=== PATIENT | male | born 2000 | race Caucasian/White ===

== ENCOUNTER 2023-07-07 17:47 | Inpatient (IN) | payer OTHER, SELFPAY ==
[2023-07-07 18:00] VITALS: BP 117/75; PULSE 109; TEMP 37.1; O2SAT 97; BMI 23.3
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
--- NOTE | 2023-07-07 18:16 | ECG_ITS ---
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 Measurements Intervals [place] Rate: 92 P: 69 MO: 183 QRS: 89 QRSD: 104 T: 46 QT: 328 QTc: 407 Interpretive Statements SINUS RHYTHM WITH SINUS ARRHYTHMIA No previous ECG available for comparison Electronically Signed On 07-08-2023 10:50:53 POLY AREA SUPERVISOR by Gema Pierce M.D. [id number]
[2023-07-07 18:39] LABS: Basophils % 0.4 %; Eosinophils # 0.1 10^3/uL (0.0-0.8); Eosinophils % 1.4 %; Hematocrit 47.9 % (37-53); Lymphocytes # 1.3 10^3/uL (0.8-4.8); Lymphocytes % 24.7 %; Mean Corpuscular HGB Conc 33.4 g/dL (30-55); Mean Corpuscular Hemoglobin 28.7 pg (27-33); Mean Corpuscular Volume 85.8 fl (82-101); Mean Platelet Volume 9.2 fL (7.4-10.4); Monocytes # 0.5 10^3/uL (0.2-0.9); Monocytes % 9.1 %; Neutrophils # 3.33 10^3/uL (1.8-7.7); Neutrophils % 64.2 %; Nucleated Red Blood Cells % 0 %; Platelet Count 310 10^3/cmm (157-399); Red Blood Count 5.58 10^6/uL (3.85-5.65); Red Cell Distribution Width 11.9 % (12.1-15.1); White Blood Count 5.18 10^3/uL (3.29-11.43)
[2023-07-07 19:05] LABS: Alanine Aminotransferase 23 U/L (0-41); Albumin Level 4.6 g/dL (3.5-5.2); Alkaline Phosphatase 86 U/L (40-130); Aspartate Amino Transferase 18 U/L (0-40); Blood Urea Nitrogen 14 mg/dL (6-20); Calcium 8.9 mg/dL (8.5-10.5); Carbon Dioxide 27 mmol/L (22-29); Chloride 105 mmol/L (98-107); Creatinine Clr Calc Pharmacy 167.8448; Globulin 2.6 g/dL (1.3-4.6); Glomerular Filtration Rate 142.4 mL/min (90-130); Glucose 99 mg/dL (65-115); Osmolality Calculated 291 mOsm/kg (285-295); Sodium 140 mmol/L (136-145); Thyroid Stimulating Hormone 2.27 uIU/mL (0.27-4.20); Total Bilirubin 0.3 mg/dL (0.15-1.2); Total Protein 7.2 g/dL (6.6-8.7)
[2023-07-07 19:13] LABS: Acetaminophen < 5.0 ug/mL (10-30); Alcohol Level < 10 mg/dL (0-10); Salicylate < 0.3 mg/dL (3-10)
[2023-07-07 20:49] LABS: Add Urine Culture? No; Add Urine Microscopic? YES; Bacteria Urine TRACE /hpf; Bilirubin Urine Neg (Negative); Blood Urine Neg (Negative); Glucose Urine UA Norm (Normal); Ketones Urine Negative (Negative); Leukocyte Esterase Urine Negative (Negative); Mucus Urine 2+ /hpf; Nitrate Urine Negative (Negative); Protein Urine Trace (Negative); Urine Appearance Clear (CLEAR); Urine Color Yellow (Yellow); Urobilinogen Urine 1 mg/dL (Negative); pH Urine 6 (5-7)
[2023-07-07 20:51] LABS: Amphetamines Screen Urine Negative (Negative); Barbiturates Screen Urine Negative (Negative); Benzodiazepines Screen Urine Negative (Negative); Cocaine Screen Urine Negative (Negative); Opiate Screen Urine Negative (Negative); PCP Screen Urine Negative (Negative); THC Screen Urine Negative (Negative)
[2023-07-07 21:22] VITALS: BP 103/72; PULSE 94; RESP 18; TEMP 36.9; O2SAT 98
--- NOTE | 2023-07-07 21:43 | PC.NURSE ---
96 Hour Involuntary Hold Patient Rights have been read to the patient and a copy of the same has been given to him. Elevator Constructor Yue Marquez was present at bedside at the time of presentation of rights.
[2023-07-07 22:49] VITALS: BP 122/76; PULSE 93; O2SAT 99
[2023-07-08 06:00] VITALS: BP 108/74; PULSE 88; RESP 16; TEMP 36.5; O2SAT 99
--- NOTE | 2023-07-08 07:59 | PC.NURSE ---
Morning assessment Patient denies anxiety, depression, SI, HI, and AVH. 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 He works 5 days per week, 8 hour shifts.
[2023-07-08 14:00] VITALS: RESP 16
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
[2023-07-08 21:16] VITALS: BP 127/81; PULSE 96; RESP 18; TEMP 36.6; O2SAT 99
[2023-07-09 06:00] VITALS: BP 114/77; PULSE 95; RESP 16; TEMP 36.8; O2SAT 98
--- NOTE | 2023-07-09 06:37 | PC.NURSE ---
NO PRN MEDICATIONS WERE RECEIVED THIS SHIFT. PT SLEPT APPROXIMATELY 9-10 HOURS AND IS CURRENTLY RESTING WITH NO DISTRESS NOTED AT THIS TIME.
[2023-07-09 14:00] VITALS: BP 114/71; PULSE 96; RESP 16; TEMP 36.9; O2SAT 99
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
[2023-07-09 20:42] VITALS: BP 128/84; PULSE 85; RESP 18; TEMP 36.8; O2SAT 99
[2023-07-10 06:00] VITALS: BP 127/76; PULSE 106; RESP 16; TEMP 36.9; O2SAT 99
[2023-07-10 14:00] VITALS: BP 110/68; PULSE 94; RESP 17; TEMP 36.9; O2SAT 97
--- NOTE | 2023-07-10 16:10 | PC.NURSE ---
Patient had a visit with his mom in which she became very agitated about how his bill would be paid. Nursing staff told her we did not take part in the billing process, but that she could contact billing to find out this information. She then asked if a person were to be here and did not have insurance how the bill would be paid and when answered with it would be billed to the patient she replied, so, basically you'd just ruin his life? This RN then told her that her son had insurance so it would be billed to insurance. She continued to seem irritated and walked off from the nurses' station.
--- NOTE | 2023-07-10 17:52 | W.PM.NPUPNS ---
Subjective NPU Subjective: Patient presented today reporting that he was feeling okay. Met with he and his mother and they expressed concerns about making sure the court had been notified that he would be here and not in court on Wednesday. We discussed that we had taking care of that. Additionally mother had concerns about him not being discharged, but when we discussed needing more information to understand his safety risks she reported that we would need to talk to the vacuum metalizing supervisor because of concerns that talking about his history could put him in legal jeopardy of some sort. We assured her that we were just trying to get an understanding of developmental considerations but she continued to refuse. He denied any need for any medications. Mental Status Exam MSE Comments: This is a a slender white male in hospital scrubs with adequate hygiene and limited eye contact. No abnormal involuntary motor movements except for mild psychomotor retardation. Mostly cooperative with exam in mild distress. Her speech was decreased in rate, normal in volume with a limited prosody. Mood described as okay ; affect was restricted in range. Thought process: linear and logical. Thought content: Patient denies suicidal ideation, self-harm, paranoia, hallucinations, and nightmares. Reports occasional anxiety related to upcoming court date. He denies depression or homicidal ideation he did not appear to be responding to internal stimuli Attention and concentration appeared intact and memory seemed unreliable after reading the affidavit but possibly intentionally so, but none were formally tested. He is alert and oriented x 3. Insight, judgment and impulse control are all impaired Vitals/I&O/Wt Last Vital Signs Temp 98.4 F 07/10/23 14:00 Pulse 94 07/10/23 14:00 Resp 17 07/10/23 14:00 BP 110/68 07/10/23 14:00 Pulse Ox 97 07/10/23 14:00 O2 Del Method Room Air 07/10/23 06:00 Data NPU 07/07/23 18:31 07/07/23 18:31 A&P Assessment and plan (1) Suicidal ideation: (2) Homicidal ideation: (3) Paranoia: (4) Parent-child relational problem: Plan This is a 22-year-old white male who presents denying symptoms of depression, psychosis, PTSD, OCD, antisocial personality disorder, conduct disorder, or significant anxiety, but concerns for paranoia exist and his items discovered in his room are strong contrast with his reports. Concerns for cluster A versus C personality disorder or autism exist 1. Evaluate for need for any medication 2. Continue every 15 minute checks for safety. 3. Encourage individual, group and milieu therapy. 4. Evaluate for safety for 96-hour hold. 5. Mother refused to give collateral information/past history secondary to legal concerns. Involuntary Hold Information 96 Hour Hold: 96 Hour Involuntary Admission: Yes 96 Hour Hold Ending Date: 07/13/23 96 Hour Hold Ending Time: 21:30 Attestations NPU Medical Necessity Statement*: Inpatient hospitalization is medically necessary and the clinically appropriate intervention at this time. We will monitor/initiate medications and make changes as indicated. Likely length of stay 4 to 6 days. Coding Level of Care Code Acute Code for [facility] Fwd Diagnoses Suicidal ideation R45.851 Homicidal ideation R45.850 Paranoia F22 Parent-child relational problem Z62.820
[2023-07-10 20:09] VITALS: BP 119/79; PULSE 95; RESP 17; TEMP 36.6; O2SAT 98
--- NOTE | 2023-07-10 21:53 | PC.NURSE ---
PACING HALLWAY. PT IS NOTED TO HAVE FLAT AFFECT AND IS GUARDED WITH STAFF. PT IS EVASIVE WITH ANSWERING QUESTION. DENIES PAIN. DENIES SI/HI AND AVH AT THIS TIME. RATES ANXIETY AND DEPRESSION 0/10. SUPPORT WAS VOICED.
[2023-07-11 06:00] VITALS: BP 113/76; PULSE 96; RESP 16; O2SAT 99
--- NOTE | 2023-07-11 11:11 | P.NPUPN_ITS ---
Subjective NPU 2 Subjective: Patient presented today reporting that he is feeling fine. Staff reports of his dad coming to visit and reporting a previous diagnosis of autism that they had believed he grew out of. Still no clear indication of what the source of his anger may have been in the past. Parents both seem to be likely to embrace conspiracy theories and both are somewhat resistant to reporting things about him for fear that they will be used against him. Talk with Obed about the need for us to understand the circumstances of his behaviors to be able to possibly predict the risk of future behaviors. Mental Status Exam 2 MSE Comments: This is a a slender white male in hospital scrubs with adequate hygiene and limited eye contact. No abnormal involuntary motor movements except for mild psychomotor retardation. Mostly cooperative with exam in mild distress. Her speech was decreased in rate, normal in volume with a limited prosody. Mood described as okay ; affect was restricted in range. Thought process: linear and logical. Thought content: Patient denies suicidal ideation, self-harm, paranoia, hallucinations, and nightmares. Reports occasional anxiety related to upcoming court date. He denies depression or homicidal ideation he did not appear to be responding to internal stimuli Attention and concentration appeared intact and memory seemed unreliable after reading the affidavit but possibly intentionally so, but none were formally tested. He is alert and oriented x 3. Insight, judgment and impulse control are all impaired Vitals/I&O/Wt Last Vital Signs Temp 97.9 F 07/10/23 20:09 Pulse 96 07/11/23 06:00 Resp 16 07/11/23 06:00 BP 113/76 07/11/23 06:00 Pulse Ox 99 07/11/23 06:00 O2 Del Method Room Air 07/11/23 06:00 Weight last 48 hrs Weight 74.899 kg Data NPU 07/07/23 18:31 07/07/23 18:31 A&P Assessment and plan (1) Suicidal ideation: (2) Homicidal ideation: (3) Paranoia: (4) Parent-child relational problem: Plan This is a 22-year-old white male who presents denying symptoms of depression, psychosis, PTSD, OCD, antisocial personality disorder, conduct disorder, or significant anxiety, but concerns for paranoia exist and his items discovered in his room are strong contrast with his reports. Concerns for cluster A versus C personality disorder or autism exist 1. Evaluate for need for any medication 2. Continue every 15 minute checks for safety. 3. Encourage individual, group and milieu therapy. 4. Evaluate for safety for 96-hour hold. 5. Mother refused to give collateral information/past history secondary to legal concerns. Involuntary Hold Information 2 96 Hour Hold: 96 Hour Involuntary Admission: Yes 96 Hour Hold Ending Date: 07/13/23 96 Hour Hold Ending Time: 21:30 Attestations NPU 2 Medical Necessity Statement*: Inpatient hospitalization is medically necessary and the clinically appropriate intervention at this time. We will monitor/initiate medications and make changes as indicated. Likely length of stay 3-5 days. Coding Level of Care Code Acute Code for [facility] Fwd Diagnoses Suicidal ideation R45.851 Homicidal ideation R45.850 Paranoia F22 Parent-child relational problem Z62.820
[2023-07-11 14:00] VITALS: BP 107/68; PULSE 97; RESP 17; TEMP 36.8; O2SAT 97
[2023-07-11 20:43] VITALS: BP 134/72; PULSE 84; RESP 18; TEMP 36.8; O2SAT 97
--- NOTE | 2023-07-11 21:45 | PC.NURSE ---
PT CONTINUES TO BE EVASIVE WITH ASSESSMENT QUESTIONS. DENIES SI/HI AND AVH AT THIS TIME. RATES ANXIETY AND DEPRESSION 0/10. DENIES PAIN. PT BELIEVES HE SHOULD NOT BE HERE BUT WILL NOT GIVE ANY INSIGHT OR VERBALIZE WHY HE IS HERE. SUPPORT VOICED.
[2023-07-12 06:00] VITALS: BP 122/78; PULSE 66; RESP 16; TEMP 36.5; O2SAT 98
--- NOTE | 2023-07-12 12:56 | P.NPUPN_ITS ---
Subjective NPU 2 Subjective: Patient presented today reporting that he is doing okay in general. He reports wanting to go home but acknowledging that he does understand the safety considerations that we are exploring. We discussed filing for 21-day hold but still trying to decide what is appropriate moving forward. He continues to deny any need for medication. Mental Status Exam 2 MSE Comments: This is a a slender white male in hospital scrubs with adequate hygiene and limited eye contact. No abnormal involuntary motor movements except for mild psychomotor retardation. Mostly cooperative with exam in mild distress. Her speech was decreased in rate, normal in volume with a limited prosody. Mood described as okay ; affect was restricted in range. Thought process: linear and logical. Thought content: Patient denies suicidal ideation, self-harm, paranoia, hallucinations, and nightmares. Reports occasional anxiety related to upcoming court date. He denies depression or homicidal ideation he did not appear to be responding to internal stimuli Attention and concentration appeared intact and memory seemed unreliable after reading the affidavit but possibly intentionally so, but none were formally tested. He is alert and oriented x 3. Insight, judgment and impulse control are all impaired Vitals/I&O/Wt Last Vital Signs Temp 97.7 F 07/12/23 06:00 Pulse 66 07/12/23 06:00 Resp 16 07/12/23 06:00 BP 122/78 07/12/23 06:00 Pulse Ox 98 07/12/23 06:00 O2 Del Method Room Air 07/11/23 20:43 Weight last 48 hrs Weight 74.899 kg Data NPU 07/07/23 18:31 07/07/23 18:31 A&P Assessment and plan (1) Suicidal ideation: (2) Homicidal ideation: (3) Paranoia: (4) Parent-child relational problem: Plan This is a 22-year-old white male who presents denying symptoms of depression, psychosis, PTSD, OCD, antisocial personality disorder, conduct disorder, or significant anxiety, but concerns for paranoia exist and his items discovered in his room are strong contrast with his reports. Concerns for cluster A versus C personality disorder or autism exist 1. Evaluate for need for any medication 2. Continue every 15 minute checks for safety. 3. Encourage individual, group and milieu therapy. 4. Evaluate for safety for 96-hour hold. 5. Mother refused to give collateral information/past history secondary to legal concerns. Father reporting history of autistic disorder. 6. Filed 21-day hold paperwork today. Involuntary Hold Information 2 96 Hour Hold: 96 Hour Involuntary Admission: Yes 96 Hour Hold Ending Date: 07/13/23 96 Hour Hold Ending Time: 21:30 Attestations NPU 2 Medical Necessity Statement*: Inpatient hospitalization is medically necessary and the clinically appropriate intervention at this time. We will monitor/initiate medications and make changes as indicated. Likely length of stay 3-5 days. Possibly longer with 21-day hold. Coding Level of Care Code Acute Code for [facility] Fwd Diagnoses Suicidal ideation R45.851 Homicidal ideation R45.850 Paranoia F22 Parent-child relational problem Z62.820
[2023-07-12 14:00] VITALS: BP 108/69; PULSE 112; RESP 17; TEMP 36.6; O2SAT 97
[2023-07-12 20:06] VITALS: BP 112/74; PULSE 111; RESP 18; TEMP 37.1; O2SAT 98
[2023-07-13 06:00] VITALS: BP 117/78; PULSE 82; RESP 16; TEMP 36.6; O2SAT 98
--- NOTE | 2023-07-13 07:44 | PC.NURSE ---
During morning shift assessment, patient stated that he is doing good. Patient denies SI, HI, AVH, depression, and anxiety. When asked about his past, patient stated that he used to live in [place] or [place]. Patient states that he likes it here because he likes nature. Patient states that his mother is from [place], and his dad is from [place].
--- NOTE | 2023-07-13 07:48 | PC.NURSE ---
During morning shift assessment, patient stated that he is doing good. Patient denies SI, HI, AVH, depression, and anxiety. When asked about his past, patient stated that he used to live in [place] or [place]. Patient states that he likes it here because he likes nature. Patient states that his mother is from [place], and his dad is from [place].
--- NOTE | 2023-07-13 11:34 | P.NPUPN_ITS ---
Subjective NPU 2 Subjective: Patient presented today essentially unchanged and continuing to be limited in his either willingness to give some indication of the back story of the items in his room in the journal or his ability to recall that information. We discussed the impact of this in trying to identify what is driving his dangerous behaviors and that leading to the filing of a 21-day hold extension so that we can ensure that we have a better understanding of these recent events in the past events. Tried to discuss his history of autism diagnoses but he reports that we need to talk to his mother about his past medical history. Mental Status Exam 2 MSE Comments: This is a a slender white male in hospital scrubs with adequate hygiene and limited eye contact. No abnormal involuntary motor movements except for mild psychomotor retardation. Mostly cooperative with exam in mild distress. Her speech was decreased in rate, normal in volume with a limited prosody. Mood described as okay ; affect was restricted in range. Thought process: linear and logical. Thought content: Patient denies suicidal ideation, self-harm, paranoia, hallucinations, and nightmares. Reports occasional anxiety related to upcoming court date. He denies depression or homicidal ideation he did not appear to be responding to internal stimuli Attention and concentration appeared intact and memory seemed unreliable after reading the affidavit but possibly intentionally so, but none were formally tested. He is alert and oriented x 3. Insight, judgment and impulse control are all impaired Vitals/I&O/Wt Last Vital Signs Temp 97.9 F 07/13/23 06:00 Pulse 82 07/13/23 06:00 Resp 16 07/13/23 06:00 BP 117/78 07/13/23 06:00 Pulse Ox 98 07/13/23 06:00 O2 Del Method Room Air 07/11/23 20:43 Data NPU 07/07/23 18:31 07/07/23 18:31 A&P Assessment and plan (1) Suicidal ideation: (2) Homicidal ideation: (3) Paranoia: (4) Parent-child relational problem: Plan This is a 22-year-old white male who presents denying symptoms of depression, psychosis, PTSD, OCD, antisocial personality disorder, conduct disorder, or significant anxiety, but concerns for paranoia exist and his items discovered in his room are strong contrast with his reports. Concerns for cluster A versus C personality disorder or autism exist 1. Evaluate for need for any medication 2. Continue every 15 minute checks for safety. 3. Encourage individual, group and milieu therapy. 4. Evaluate for safety for 96-hour hold. 5. Mother refused to give collateral information/past history secondary to legal concerns. Father reporting history of autistic disorder. 6. Filed 21-day hold paperwork today. 7. We will meet with the hospital administration to make sure they are aware of this significant risk for any considerations they are thinking as we consider eventual discharge. Involuntary Hold Information 2 96 Hour Hold: 96 Hour Involuntary Admission: Yes 96 Hour Hold Ending Date: 07/13/23 96 Hour Hold Ending Time: 21:30 Attestations NPU 2 Medical Necessity Statement*: Inpatient hospitalization is medically necessary and the clinically appropriate intervention at this time. We will monitor/initiate medications and make changes as indicated. Likely length of stay 3-5 days. Possibly longer with 21-day hold. Coding Level of Care Code Acute Code for [facility] Fwd Diagnoses Suicidal ideation R45.851 Homicidal ideation R45.850 Paranoia F22 Parent-child relational problem Z62.820
[2023-07-13 14:00] VITALS: BP 102/68; PULSE 88; RESP 20; TEMP 36.7; O2SAT 98
[2023-07-13 20:44] VITALS: BP 104/71; PULSE 136; RESP 18; TEMP 36.7; O2SAT 95
[2023-07-14 06:00] VITALS: BP 108/76; PULSE 82; RESP 18; TEMP 36.8; O2SAT 98
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
[2023-07-14 12:57] VITALS: BP 118/75; PULSE 116; RESP 16; TEMP 36.8; O2SAT 98
--- NOTE | 2023-07-14 14:01 | PC.NURSE ---
Left unit to go to [address] at 1400
--- NOTE | 2023-07-14 15:32 | PC.NURSE ---
Patient arrived back to unit from court at 1530. Patient calm.
[2023-07-14 20:50] VITALS: BP 104/65; PULSE 84; RESP 18; TEMP 36.6; O2SAT 97
--- NOTE | 2023-07-14 21:14 | PC.NURSE ---
IN DAY ROOM WATCHING TV, PT CONTINUES TO BE EVASIVE WITH ASSESSMENT. DENIES SI/HI AND AVH AT THIS TIME. DENIES PAIN. RATES ANXIETY AND DEPRESSION 0/10. SUPPORT VOICED.
[2023-07-15 06:00] VITALS: BP 111/72; PULSE 105; RESP 16; TEMP 36.6; O2SAT 99
[2023-07-15 14:00] VITALS: BP 128/89; PULSE 100; RESP 17; TEMP 37.1; O2SAT 99
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
[2023-07-15 20:26] VITALS: BP 105/70; PULSE 97; RESP 16; TEMP 36.8; O2SAT 99
[2023-07-16 06:00] VITALS: BP 110/71; PULSE 93; RESP 16; TEMP 37; O2SAT 98
--- NOTE | 2023-07-16 08:02 | PC.NURSE ---
During morning shift assessment, patient reports that he is doing good. Patient denies SI, HI, AVH, depression, and anxiety.
[2023-07-16 14:00] VITALS: BP 112/72; PULSE 94; RESP 17; TEMP 37.1; O2SAT 99
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
[2023-07-16 20:42] VITALS: BP 105/69; PULSE 96; RESP 18; TEMP 36.8; O2SAT 98
--- NOTE | 2023-07-16 21:34 | PC.NURSE ---
IN DAY ROOM WATCHING TV NO DISTRESS NOTED. CONTINUES TO DENY PAIN, SI/HI AND AVH AT THIS TIME. PT DECLINES PRN MEDICATIONS AND IS NOTED TO SLEEP VERY WELL AT NIGHT WITH NO OBSERVATIONS OF ANXIETY. SUPPORT WAS VOICED
--- NOTE | 2023-07-17 05:12 | PC.NURSE ---
PT DID NOT REQUIRE OR REQUEST ANY PRN'S THIS SHIFT. PT WAS ABLE TO REST THROUGHOUT THE SHIFT. PT CONTINUES TO REST WITH EYES CLOSED WITH NO DISTRESS NOTED AT THIS TIME.
[2023-07-17 06:00] VITALS: BP 135/82; PULSE 80; RESP 16; O2SAT 99
[2023-07-17 14:00] VITALS: BP 118/73; PULSE 78; RESP 18; TEMP 36.8; O2SAT 99
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
[2023-07-17 20:23] VITALS: BP 107/68; PULSE 81; RESP 18; TEMP 36.7; O2SAT 96
[2023-07-18 06:00] VITALS: BP 102/66; PULSE 76; RESP 16; O2SAT 96
[2023-07-18 14:00] VITALS: BP 100/62; PULSE 100; RESP 20; TEMP 36.9; O2SAT 97
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
[2023-07-18 20:28] VITALS: BP 135/91; PULSE 99; RESP 18; TEMP 36.7; O2SAT 98
[2023-07-19 06:00] VITALS: BP 127/82; PULSE 72; RESP 16; TEMP 36.5; O2SAT 98
[2023-07-19 14:00] VITALS: BP 108/69; PULSE 99; RESP 18; TEMP 36.7; O2SAT 96
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
[2023-07-19 21:36] VITALS: BP 108/71; PULSE 72; RESP 18; TEMP 36.8; O2SAT 98
--- NOTE | 2023-07-19 21:46 | PC.NURSE ---
PT IN DAY ROOM SITTING DOWN AND WATHCING TV WITH NO DISTRESS NOTED. PT DENIES SI/HI AND AVH AT THIS. DENIES PAIN. RATES ANXIETY AND DEPRESSION 0/10. SUPPORT VOICED.
--- NOTE | 2023-07-20 05:10 | PC.NURSE ---
PT DECLINED THE NEED FOR PRN MEDICATIONS THIS SHIFT. PT HAS SLEPT APPROXIMATELY 9-10 HOURS THIS SHIFT. PT IS CURRENTLY RESTING WITH EYES CLOSED WITH NO DISTRESS NOTED AT THIS TIME.
[2023-07-20 06:00] VITALS: BP 115/78; PULSE 94; RESP 18; TEMP 36.4; O2SAT 96
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
[2023-07-20 15:04] VITALS: BP 115/78; PULSE 94; RESP 18; TEMP 36.4; O2SAT 96
== END 2023-07-20 15:22 | disposition home or self-care (01) | DRG 885 ==
LOC: ER 20:33 → NP 20:45
PROVIDERS: Internal Medicine; Admitting Provider Psychiatry & Neurology Psychiatry; Emergency Provider Emergency Medicine; Visit Provider Psychiatry & Neurology Psychiatry
DX: F22 Delusional disorders (principal); R45.851 Suicidal ideations; R45.850 Homicidal ideations; Z62.820 Parent-biological child conflict
CPT/HCPCS: 36415; 80053; 80306; 80307; 81001; 84443; 85025; 93005; 97150; 97165; 99285

== ENCOUNTER 2025-03-14 02:12 | Emergency (ER) | payer OTHER, SELFPAY ==
[2025-03-14 02:15] VITALS: BP 132/77; PULSE 80; RESP 17; TEMP 36.9; O2SAT 98; BMI 25.1
--- OUTSIDE RECORDS SUMMARY | 2025-03-14 02:34 | XMS_ITS | Data Portability ---
Author Organization BENJAMIN Gilliland [facility] Adelso Louie [facility] Address [address] [place] [id number] Assessment No assessment recorded. Plan of Treatment Reminders Order Date Submit Date Provider Last Modified By Organization Details Last Modified Time Details Appointments None recorded. Lab CMP, serum or plasma 2024 025 [facility], [address] [facility], [address], [place], [address], 5 13:42:41 lipid panel, blood 2024 025 [facility], [address] [facility] Rodriguestianna, [address], [place], [address], 5 13:42:44 CBC 2024 025 [facility], [address] [facility], [address], [place], [address], 5 11:52:50 alpha-gal ige, serum 2024 025 [facility], [address] [facility] [address], [place], [address], 5 07:21:27 TSH, serum or plasma [email or web address] [place] [address] Lab, [address] [facility], [address], [place], [address], 15:30:39 Referral None recorded. Procedures None recorded. Surgeries None recorded. Imaging None recorded. Medication Orders amoxicillin 875 mg tablet 2023 024 [id number], [address], [place], [place], [id number], 11:36:14 fluticasone propionate 50 mcg/actuati on nasal spray,suspe nsion 2023 024 [place] [id number] [address] [facility] #[id number], [address], [place], [place], [id number], 11:36:17 Patient TargetsNo targets recorded. Patient InstructionsNo instructions recorded. Reason for Referral None Reported. Results Created Date Observation Date Name Description Value Unit Range Abnormal Flag Note LastModifiedBy Organization Detail LastModifiedTime 01/13/2001/12/2025 CBC WBC 5.2 x10 4.5-10 .5 Not Available [facility] [address] [facility] [address], [place], [address], 01/12/2025 11:52:50 01/13/2001/12/2025 CBC RBC 5.13 x10 4.30-5 .90 Not Available [facility] [address] [facility] Ravitianna [facility] 1, [place], [address], 01/12/2025 11:52:50 01/13/2001/12/2025 CBC HGB 15.4 g/dL 13.5-1 8.0 Not Available [facility] [address] [facility] [address], [place], [address], 01/12/2025 11:52:50 01/13/2001/12/2025 CBC HCT 45.8 % 35.0-6 0.0 Not Available [facility] [address] [facility] [address], [place], [address], 01/12/2025 11:52:50 01/13/20 25 01/12/2025 CBC MCV 89.3 fL 80.0-9 9.9 Not Available [facility] [address] [facility] 1, [place], [address], 01/12/2025 11:52:50 01/13/20 25 01/12/2025 CBC MCH 29.9 pg 27.0-3 2.0 Not Available [facility] [address] [facility] 1, [place], [address], 01/12/2025 11:52:50 01/13/20 25 01/12/2025 CBC MCHC 33.5 g/dL 32.0-3 6.0 Not Available [facility] [address] [facility] 1, [place], [address], 01/12/2025 11:52:50 01/13/20 25 01/12/2025 CBC RDW 13.6 % 11.5-1 4.5 Not Available [facility] [address] [facility] 1, [place], [address], 01/12/2025 11:52:50 01/13/20 25 01/12/2025 CBC plt 258.6 x10 150.0- 451.0 Not Available [facility] [address] [facility] 1, [place], [address], 01/12/2025 11:52:50 01/13/20 25 01/12/2025 CBC lymphocytes % 32.1 % 20.0-5 0.0 Not Available [facility] [address] [facility] 1, [place], [address], 01/12/2025 11:52:50 01/13/20 25 01/12/2025 CBC granulcytes % 56.3 % 30.0-7 0.0 Not Available [facility] [address] [facility] 1, [place], [address], 01/12/2025 11:52:50 01/13/2001/12/2025 CBC monocytes % 7.8 % 2.0-16 .0 Not Available [facility] [address] [facility] 1, [place], [address], 01/12/2025 11:52:50 01/13/2001/12/2025 CBC granulcytes# 2.9 x10 Not Mary ilable [facility] [address] [facility] 1, [place], [address], 01/12/2025 11:52:50 01/13/2001/12/2025 CBC lymphocytes # 1.7 x10 Not Available [facility] [address] [facility], [place], [address], 01/12/2025 11:52:50 01/13/2001/12/2025 CBC monocytes # 0.4 x10 Not Avai lable [facility] [address] [facility], [place], [address], 01/12/2025 11:52:50 01/13/2001/12/2025 TSH TSH 1.65 uIU/m L 0.49-3 .82 Not Available [facility] [address] [facility], [place], [address], 01/12/2025 12:23:45 01/13/2001/12/2025 CMP (MALE ) glucose 97.0 mg/dL 60.0-9 9.0 Not Available [facility] [address] [facility] 1, [place], [address], 01/12/2025 13:42:41 01/13/20 25 01/12/2025 CMP (MALE ) BUN (blood urea nitrogen) 18.0 mg/dL 10.0-2 6.0 Not Available [facility] [address] [facility] 1, [place], [address], 01/12/2025 13:42:41 01/13/20 25 01/12/2025 CMP (MALE ) creatinine (serum) 0.8 mg/dL 0.4-1. 5 Not Available [facility] [address] [facility], [place], [address], 01/12/2025 13:42:41 01/13/20 25 01/12/2025 CMP (MALE ) BUN/creatini ne ratio 22.50 ratio Not Available [facility] [address] [facility], [place], [address], 01/12/2025 13:42:41 01/13/20 25 01/12/2025 CMP (MALE ) eGFR calculated 127.3 Not Available [facility] [address] [facility], [place], [address], 01/12/2025 13:42:41 01/13/20 25 01/12/2025 CMP (MALE ) total protein 7.2 g/dL 6.0-8. 5 Not Available [facility] [address] [facility], [place], [address], 01/12/2025 13:42:41 01/13/20 25 01/12/2025 CMP (MALE ) total bilirubin 0.7 mg/dL 0.2-1. 3 Not Available [facility] [address] [facility], [place], [address], 01/12/2025 13:42:41 01/13/20 25 01/12/2025 CMP (MALE ) albumin 4.6 g/dL 3.5-5. 5 Not Available [facility] [address] [facility], [place], [address], 01/12/2025 13:42:41 01/13/20 25 01/12/2025 CMP (MALE ) globulin 2.6 calc Not Available [facility] [address] [facility] [address], [place], [address], 01/12/2025 13:42:41 01/13/20 25 01/12/2025 CMP (MALE ) AST (SGOT) 34.0 U/L 0.0-46 .0 Not Available [facility] [address] [facility] [address], [place], [address], 01/12/2025 13:42:41 01/13/20 25 01/12/2025 CMP (MALE ) altv (SGPT) 42.0 U/L 13.0-6 9.0 normal Not Available [facility] [address] [address], [place], [address], 01/12/2025 13:42:41 01/13/20 25 01/12/2025 CMP (MALE ) A/G ratio 1.8 ratio Not Available [facility] [address] [address], [place], [address], 01/12/2025 13:42:41 01/13/20 25 01/12/2025 CMP (MALE ) ALP phos 60.0 U/L 30.0-1 40.0 normal Not Available [facility] [address] [address], [place], [address], 01/12/2025 13:42:41 01/13/20 25 01/12/2025 CMP (MALE ) calcium 9.2 mg/dL 8.4-10 .5 Not Available [facility] [address] [address], [place], [address], 01/12/2025 13:42:41 01/13/20 25 01/12/2025 CMP (MALE ) sodium 139.0 mmol/ L 136.0- 145.0 Not Available [facility] [address] [facility], [place], [address], 01/12/2025 13:42:41 01/13/2001/12/2025 CMP (MALE ) potassium 4.1 mmol/ L 3.5-5. 1 Not Available [facility] [address] [place] [facility], [place], [address], 01/12/2025 13:42:41 01/13/20 25 01/12/2025 CMP (MALE ) chloride 105.0 mmol/ L 98.0-1 10.0 normal Not Available [facility] [address] [place] [facility], [place], [address], 01/12/2025 13:42:41 01/13/20 25 01/12/2025 CMP (MALE ) C02 27.0 mmol/ L 22.0-3 1.0 Not Available [facility] [address] [facility] [address], [place], [address], 01/12/2025 13:42:41 01/13/2001/12/2025 CMP (MALE ) anion gap 7.0 calc Not Available [facility] [address] [facility] [address], [place], [address], 01/12/2025 13:42:41 01/13/2001/12/2025 CMP (MALE ) osmolality 288.9 calc Not Available [facility] [address] [place] [facility], [place], [address], 01/12/2025 13:42:41 01/13/2001/12/2025 LIPID PROFI LE (MALE ) cholesterol 135.0 mg/dL 0.0-20 0.0 Not Available [facility] [address] [facility] [address], [place], [address], 01/12/2025 13:42:43 01/13/20 25 01/12/2025 LIPID PROFI LE (MALE ) trig 31.0 mg/dL 0.0-15 0.0 Not Available [facility] [address] [facility] 1, [place], [address], 01/12/2025 13:42:43 01/13/20 25 01/12/2025 LIPID PROFI LE (MALE ) HDL - direct 60.0 mg/dL >40.0 Not Available [facility] [address] [facility] 1, [place], [address], 01/12/2025 13:42:43 01/13/20 25 01/12/2025 LIPID PROFI LE (MALE ) VLDL - direct 6.2 mg/dL Not Available [facility] [address] [address], [place], [address], 01/12/2025 13:42:43 01/13/20 25 01/12/2025 LIPID PROFI LE (MALE ) LDL - direct 68.8 mg/dL 0.0-13 0.0 Not Available [address] [address], [place], [address], 01/12/2025 13:42:43 01/13/20 25 01/17/2025 ALPHA GAL PANEL beef (F27) IgE 2.77 kU/L high Not Available [facility] [address], [address], 01/17/2025 07:21:27 01/13/20 25 01/17/2025 ALPHA GAL PANEL class 2 Not Available [facility] [address], [address], 01/17/2025 07:21:27 01/13/20 25 01/17/2025 ALPHA GAL PANEL mcgill (F88) IgE 1.89 kU/L high Not Available [facility] [address], [address], 01/17/2025 07:21:27 01/13/2001/17/2025 ALPHA GAL PANEL class 2 Not Available [address] [address] [place], [address], 01/17/2025 07:21:27 01/13/20 25 01/17/2025 ALPHA GAL PANEL pork (F26) IgE 1.36 kU/L high Not Available [address] [address] [place], [address], 01/17/2025 07:21:27 01/13/2001/17/2025 ALPHA GAL PANEL class 2 Not Available [address] [address] [place], [address], 01/17/2025 07:21:27 01/13/2001/17/2025 ALPHA GAL PANEL galactose alpha 1,3 galactose IgE 3.70 kU/L <0.10 high Resul ts above 0.1 kU/L indic ate an aller gen-s pecif ic IgE sensi tizat ion to galac tose- a-1,3 -gala ctose , and such patie nts are at risk for delay ed aller gic react ions follo wing beef, pork, or mcgill consu mptio n. Circu latin g IgE antib odies may remai n undet ectab le despi te a convi ncing clini kavita histo ry becau se these antib odies may be direc everardo towar ds aller gens revea led or alter ed durin g indus trial proce ssing , cooki ng, or diges tion and there fore do not exist in the origi nal food for which the patie nt is teste d. Somet imes indiv idual s diagn osed with chron ic urtic aria may devel op IgE antib odies direc everardo again st human thyro globu ozzy. Such antib odies may cross -reac t with the bovin e thyro globu ozzy used in Immun oCAP( R) Aller gen o215, alpha -Gal, leadi ng to a false -posi tive test resul t. A defin itive diagn osis shoul d be based on the evalu ation of both clini kavita and labor atory findi ngs and not on any singl e diagn aye moyer. Addit ional infor indy woodward can be found at http: //www .phad ia.co m Not Available [facility] [address], [place], [address], 01/17/2025 07:21:27 01/13/2001/17/2025 INTER PRETA TION interpretati on Speci fic Level of Aller gen IGE Class kU/L Speci fic IGE Antib charleen ----- ----- ---- ----- ----- ----- ---- 0 <0.10 Absen t/Und etect able 0/1 0.10- 0.34 Very Low Level 1 0.35- 0.69 Low Level 2 0.70- 3.49 Moder ate Level 3 3.50- 17.4 High Level 4 17.5- 49.9 Very High Level 5 50-10 0 Very High Level 6 >100 Very High Level The clini kavita relev ance of aller gen resul ts of 0.10- 0.34 kU/L are undet ermin ed and inten ded for speci alist use. Aller gens denot ed with a inclu de resul ts using one or more ana te speci fic reage nts. In those cases , the test was devel oped and its ana tical perfo rmanc e lillian cteri stics have been deter mined by [facility] altamir[facility]. It has not been clear ed or appro brittany by the U.S. Food and Drug Admin istra tion. This assay has been valid ated pursu ant to the CLIA regul ation s and is used for clini kavita purpo ses. Not Available [facility] [address], [place], [address], 01/17/2025 07:21:28 Result Notes None recorded. Problems Name Problem SNOMED Code Status Onset Date Resolution Date Notes Provider Name and Address Organization Details Recorded Time Fatigue 36834668 Active 025 Se Braden MD [address] [place], [address] , [facility], [place] 5 12:10:05 Chronic diarrhea 467663465 Active 025 Se Braden MD [address] [place], [address] , [facility] 12:10:24 Problem Notes None recorded. Procedures Surgical History Date Name Laterality Status Provider Name and Address Organization Details Recorded Time extraction of wisdom tooth [facility] 10:02:43 Imaging Results None recorded. Procedure Notes None recorded. Medical Equipment None Reported. Allergies No known drug allergies Medications Name Sig Start Date Stop Date Status Note LastModified by Organization Details LastModified Time amoxicillin 875 mg tablet Take 1 tablet every 12 hours by oral route for 7 days. 01/01 completed Not Available Not Available Not Available fluticasone propionate 50 mcg/actuati on nasal spray,suspe nsion [place] 1 spray every day by intranasa l route for 30 days. 01/01 completed Not Available Not Available Not Available Vitals Date Recorded Body height Body mass index (BMI) Body weight Oxygen saturation Oxygen saturation in Arterial blood by Pulse oximetry Heart rate Respiratory rate Body temperature Systolic And Diastolic Provider Name and Address Organization Details Last Updated DateTime 4 175.26 cm 23.5 kg/m2 99013.5 9 g 99 % 99 % 68 /min 16 /min 99 [degF] 118/70 mm[Hg] Rad[facility] 4 09:53:38 Date Recorded Body height Body mass index (BMI) Body weight Oxygen saturation Oxygen saturation in Arterial blood by Pulse oximetry Heart rate Respiratory rate Body temperature Systolic And Diastolic Provider Name and Address Organization Details Last Updated DateTime 5 175.26 cm 25 kg/m2 69647.8 3 g 98 % 98 % 83 /min 16 /min 97.5 [degF] 98/60 mm[Hg] Suzie Reinoso [facility] 11:35:37 Social History Question Answer Notes LastModified by Organizat ion Details LastModified Time Tobacco Smoking Status Never Smoker Radha pate [facility] 10/05/2023 09:53:51 What Is Your Level Of Caffeine Consumption? Moderate [email or web address] Information not available 01/01/2025 Sex: Unknown Functional Status Question Answer Note LastModified by Organizat ion Details LastModified Time Do you use any illicit or recreational drugs? No [email or web address] Information not available 01/01/2025 What is your level of alcohol consumption? Occasional [email or web address] Information not available 01/01/2025 Mental Status None recorded. Family History Relationship Description Onset Age of this Age Resolved Age Notes LastModified by Organization Details LastModified Time Father No current problems or disability [email or web address] Not available 11:37:13 Mother No current problems or disability [email or web address] Not available 11:37:13 Medical History No medical history recorded. Past Encounters Encounter ID Performer Location Encounter Start Date Encounter Closed Date Diagnosis/Indication Diagnosis SNOMED-CT Code Diagnosis ICD10 Code Diagnosis IMO Codes Diagnosis Note [id number] NICO NGUYEN [facility] [address] [place], [place] [address] 10/05/2023 09:48:37 10/05/2023 10:13:08 Acute left otitis media 860977216 H66.92 Discussed use of antibiotic the full 7 days. May take tylenol/mo megan for discomfort .Use Flonase nasal spray daily.Retu rn if you develop worsening pain, drainage from the ear or concerns arise. [id number] Se Braden MD [facility] [address] [place] [id number] 01/01/2025 11:24:33 01/01/2025 12:59:39 Allergy to food 619997635 Z91.018 72767 Patient has had some tick exposure so we will test for alpha gal. Discussed keeping a food diary and see if there are certain foods that seem to make it worse. General ex amination of patient 166285380 Z00.00 [id number] Patient has not had routine lab work done in years so recommend that we proceed with some today. Encouraged the patient to exercise regularly and eat a well-savi billy diet. Fatigue 20810986 R53.83 [id number] Patient was also having some fatigue with his diarrhea so we will check a thyroid level as well Chronic diarrhea 7324252 09 K52.9 57903 Workup as above. Health Concerns Section Related Observation LastModified by Organization Detai ls LastModified Time None Recorded Concern Status LastModified by Organization Details LastModified Time None Recorded Advance Directives Directive None Recorded Payers Insurance Date Sequence Insurance Name Policy Number Policy Kessler Covered Member ID Kessler Member ID Guarantor Name 01/12/2025 1 [facility] [id number] O[address] Nina [id number] Obed Nina 01/01/2025 1 [employer] - [employer] [facility]LY [facility] - DOS PRIOR TO 05.17.23 (PPO) Obed Nina [id number] Obed Nina Notes Date Note Type Note Provider Name and Address Organization Details Recorded Time 10/05/2023 text/html EaracheReported by PatientHPIFor associated symptoms, patient reportsears feel fullandswellingbut reportsno hearing loss,no discharge from the ears, andno fever. For location, patient reportsleft. For quality, patient reportsaching.ROS as noted in the HPI walk in patientpatient said that his left ear has been bother him for the last month, patient said that that his left ear will swell and feels like something is in his left ear. YONI CEBALLOS, [employer], [address], [facility] 10/06/2023 07:57:10 01/01/2025 text/html Annual WellnessR eported by PatientSocial/Behaviora l HistoryFor diet and nutrition, patient reportshealthy diet. For fracture risk, patient reportsno history of fractures. For physical activity, patient reportsexercises on a regular basisandgood physical condition. For additional lifestyle factors, patient reportsno tobacco useanddrinks alcohol (mild-moderate).Mental Status:For depression risk, patient reportsnever feels sad, empty, or tearful,no loss of interest in activities,no significant changes in weight,no sleep disturbances or insomnia,no agitation,no loss of energy,no feelings of worthlessness or guilt,no thoughts of suicide,no history of depression, andno history of mood disorders.Functional AbilityFor vision, patient reportsno vision problems(wears glasses). patient here to establish carepatient having some stomach problems. increased bloating and gas during the week. he may have 3-5 bowel movement. they are usually soft, sometimes watery. Patient denies any chronic medical issues and does not take medication on a regular basis Se Braden MD [address] [place] [address], [phone], [facility] 01/06/2025 16:43:12
[2025-03-14] MEDS: tetracaine 0.5% Op Soln 4 mL Btl 1 DROP EYE-LEFT (02:35)
--- NOTE | 2025-03-14 02:56 | ED_ITS ---
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 Wears glasses, never contacts. He has had no loss of vision, no blurry vision, discomfort but no actual pain, no pain with movement of his eyes, no severe headache. He wears his glasses with some protection on the outsides additionally but they do not cover his eyes from all angles. He states there is a lot of dust around as well as the metal he was working on as potential causative agents. Related Data Previous Rx's ?Medication ?Instructions ?Recorded carboxymethylcellulose 0.5 2 drp ophthalmic (eye) TID flush 03/14/25 %-glycerin 0.9 % (PF) eye drops out left eye and keep moist #10 mL (Refresh Tears PF) Allergies Allergy/AdvReac Type Severity Reaction Status Date / Time No Known Allergies Allergy Verified 07/07/23 18:07 Review of Systems General: Reports: 10 or more systems reviewed and unremarkable except in HPI and below Eyes: Reports: eye discomfort; Denies: change in vision, blurry vision, eye discharge, eye redness or floaters Physical Exam Narrative: EXAM NARRATIVE: Patient overall well-appearing, left eye with no proptosis, no painful EOM, no scleral injection, no chemosis. Visual lombardi grossly intact, no facial tenderness. No changes to right eye. Course Vital Signs: Vital signs: Vital Signs Temperature 98.5 F 03/14/25 02:15 Pulse Rate 80 03/14/25 02:15 Respiratory Rate 17 03/14/25 02:15 Blood Pressure 132/77 03/14/25 02:15 Pulse Oximetry 98 03/14/25 02:15 Oxygen Delivery Me thod Room Air 03/14/25 02:15 MDM - Eye Problem Medical Decision Making -ddx: Eye foreign body, contact irritation, corneal abrasion, ulcer, considered but less likely globe rupture - Patient with foreign body sensation while welding just prior to arrival, no actual eye pain, no pain with EOM, no blurry vision, no floaters, no severe headache. Wears glasses only but no contacts. Has had slightly increased tearing of his left eye and a residual itchy feeling. Berrios lamp exam done with no fluorescein uptake concerning for corneal abrasion, visual lombardi intact, no EOM, no teardrop sign to make globe rupture less likely. His eyelids both were flipped and no large identified foreign bodies were seen but a Q-tip was taken across the inside of his eyelids to remove anything prophylactically and they were irrigated for any small potential foreign body. He felt mildly improved after. He was then deemed stable for discharge home with a prescription for refresh lubricating drops to keep them moist and continue flushing out anything leftover. Advised to avoid any repeat trauma to the area as well, given ophthalmology follow-up as needed and discharged in stable condition, UDS done as part of Worker's Comp. protocol for his company. No radiology studies performed this visit Discharge Plan Discharge Patient Disposition: Home Clinical Impression: Foreign body sensation, left eye Condition: Stable Prescriptions: New Refresh Tears PF 0.5-0.9 % drops 2 drp ophthalmic (eye) TID Qty: 10 0RF Discharge Orders: Discharge ED (Routine); Ordered 03/14/25 Ordered By: Sidney Davila Referrals: Galdino Patino MD [Referring, Opthalmology] - 4-7 days Referral Note: If eye pain persists, make an appointment for back of eye exam Clinical Impression: Foreign body sensation, left eye Discharge Diet: Usual diet Discharge Activity: Limit activity as instructed Patient Instructions: Eye Foreign Body (ED), Opioid Safety, Pain Management, Patient Portal & [place] Instructions Activity Restrictions/Additional Instructions: You were seen for your eye discomfort, you were evaluated with a detailed eye exam which showed no scratches to your lens or obvious foreign bodies but your eyes were flushed out and you might have a residual feeling of grittiness for the next few days. Use the lubricating eyedrops prescribed at least 3 times a day for the next 5 days to help continue to flush out the eye and keep it moist to prevent any secondary infection. The biggest thing is to avoid repeat trauma or getting anything in the eye, use for eye protection when at work. If in a week's time your eye symptoms do not return to normal, make an appointment with ophthalmology clinic listed above for a detailed back of eye exam to see if anything else is needed. Return to the ED with complete loss of vision, severe headaches, episodes of passing out, seeing floaters or stars, any other emergent concerns. Print Language: Lao Coding Level of Care Code ED Head Of Conservation for Yomaira Ojeda
[2025-03-14 03:26] LABS: PCP Screen Urine Negative (Negative)
== END 2025-03-14 03:07 | disposition home or self-care (01) ==
PROVIDERS: Emergency Provider Student in an Organized Health Care Education/Training Program
DX: H57.8A2 Foreign body sensation, left eye (principal)
CPT/HCPCS: 80306; 99283; J9999